=== PATIENT | male | born 1975 | race Caucasian/White ===

== ENCOUNTER 2020-11-14 10:30 | Emergency (ER) | payer OTHER ==
[~2020-11-14] VITALS: Ht 170.2 cm; Wt 70.5 kg
[2020-11-14 10:51] VITALS: BP 116/75
[2020-11-14 12:45] VITALS: BP 116/75
--- NOTE | 2020-11-14 12:45 | NUR ---
Patient discharged with v/s stable. Written and verbal after care instructions given and explained. Patient verbalized understanding. Ambulatory with steady gait. All questions addressed prior to discharge. Advised to follow up with PMD.
== END 2020-11-14 12:45 | disposition home or self-care (01) ==
LOC: MED 10:30
DX: H00.015 Hordeolum externum left lower eyelid (principal)
CPT/HCPCS: 99281